=== PATIENT | female | born 1925 | race Caucasian/White ===

== ENCOUNTER 2016-12-08 17:39 | Emergency (ER) | payer MEDICARE, OTHER ==
[~2016-12-08 17:39] MED LIST: B-121000 MCG PO; CERTAGEN1 EACH PO; FEOSOL325 MG PO; FLAX SEED OIL1000 MG PO; FOLIC ACID1 MG PO; LOPRESSOR50 MG PO; NABUMETONE750 MG PO; PEPCID AC20 MG PO; [UNRECOGNIZED DRUG - OTHER] NS
[2016-12-08 18:46] LABS: BASOPHIL 0.5 % (0-2); EOSINOPHIL 1.5 % (0-7); HCT 40.1 % (37.0-47.0); HGB 13.9 g/dl (12.5-16.0); LYMPHOCYTE 10.8 % (15-48); MCH 32.9 pg (25.0-31.0); MCHC 34.7 g/dL (32.0-36.0); MCV 94.8 fL (78.0-100.0); MONOCYTE 12.7 % (0-12); MPV 10.1 fL (6.0-9.5); NEUTROPHIL 74.5 % (41-80); PLT 172 K/uL (150-400); RBC 4.23 M/uL (4.20-5.40); RDW 13.3 % (11.5-14.0); WBC 6.5 K/uL (4.0-10.5)
[2016-12-08 19:13] LABS: CREATININE 0.7 mg/dL (0.5-1.0); POTASSIUM 4.1 mmol/L (3.5-5.1)
== END 2016-12-08 19:28 | disposition home or self-care (01) ==
LOC: FER 17:39
PROVIDERS: Internal Medicine
DX: J10.1 Influenza due to other identified influenza virus with other respiratory manifestations (principal); I48.91 Unspecified atrial fibrillation; Z88.8 Allergy status to other drugs, medicaments and biological substances
CPT/HCPCS: 36415; 71020; 80048; 85025; 87450; 87804; 87899; 99283